=== PATIENT | male | born 1990 | race Caucasian/White ===

== ENCOUNTER 2019-04-23 07:20 | Emergency (ER) | payer SELFPAY ==
[~2019-04-23] VITALS: Wt 75.0 kg
[2019-04-23 07:22] VITALS: BP 116/68; PULSE 90; RESP 18
== END 2019-04-23 08:40 | disposition left against medical advice (07) ==
LOC: FTE 07:20
DX: Z53.21 Procedure and treatment not carried out due to patient leaving prior to being seen by health care provider (principal)